=== PATIENT | female | born 1970 | race Caucasian/White ===

== ENCOUNTER 2021-08-10 00:34 | Inpatient (IN) | payer OTHER ==
[2021-08-10] MEDS ORDERED: SODIUM CHLORIDE 0.9% 1,000 ML IV STA (01:51)
--- NOTE | 2021-08-10 01:53 | ED ---
Weakness HPI - General Chief complaint: Recheck/Abnormal Lab/Rx Stated complaint: Dehydration Time Seen by Provider: 08/10/21 01:51 Source: patient, RN notes reviewed, old records reviewed Mode of arrival: ambulatory Limitations: no limitations - History of Present Illness Initial comments: 51-year-old female to the for evaluation. Patient presents today for evaluation of weakness [place], she is today for alcohol withdrawal with alcohol alcoholism. Patient resents today for weakness debility decreased appetite weight loss and vomiting dehydration generalized pain and weakness. Patient states she does not feel well. MD Complaint: generalized weakness -: hour(s) Location: generalized Severity: moderate Severity scale (1-10): 5 Consistency: constant Improves with: none Worsens with: none Context: history of similar Associated Symptoms: nausea/vomiting - Related Data Allergies Allergy/AdvReac Type Severity Reaction Status Date / Time nickel Allergy Rash/Hives Verified 08/10/21 00:36 Review of Systems ROS Statement: Those systems with pertinent positive or pertinent negative responses have been documented in the HPI. ROS Other: All systems not noted in ROS Statement are negative. Past Medical History Past Medical History: Asthma, COPD, Liver Disease History of Any Multi-Drug Resistant Organisms: None Reported Past Surgical History: Hernia Repair Past Psychological History: No Psychological Hx Reported Smoking Status: Current every day smoker Past Alcohol Use History: Abuse, Daily Past Drug Use History: None Reported General Exam Limitations: no limitations General appearance: alert, in no apparent distress, anxious Head exam: Present: atraumatic, normocephalic, normal inspection Eye exam: Present: normal appearance, PERRL, EOMI. Absent: scleral icterus, conjunctival injection, periorbital swelling ENT exam: Present: normal exam, mucous membranes moist Neck exam: Present: normal inspection. Absent: tenderness, meningismus, lymphadenopathy Respiratory exam: Present: normal lung sounds bilaterally. Absent: respiratory distress, wheezes, rales, rhonchi, stridor Cardiovascular Exam: Present: normal rhythm, tachycardia, normal heart sounds. Absent: systolic murmur, diastolic murmur, rubs, gallop, clicks GI/Abdominal exam: Present: soft, normal bowel sounds. Absent: distended, tenderness, guarding, rebound, rigid Extremities exam: Present: normal inspection, full ROM, normal capillary refill. Absent: tenderness, pedal edema, joint swelling, calf tenderness Back exam: Present: normal inspection Neurological exam: Present: alert, oriented X3, CN II-XII intact Psychiatric exam: Present: normal affect, normal mood Skin exam: Present: warm, dry, intact, normal color. Absent: rash Course Vital Signs 08/10/21 08/10/21 08/10/21 00:37 02:59 03:00 Temperature 97.6 F Pulse Rate 114 H 75 68 Respiratory 16 18 18 Rate Blood Pressure 106/62 111/75 123/67 O2 Sat by Pulse 98 99 99 Oximetry 08/10/21 08/10/21 04:00 05:21 Temperature Pulse Rate 109 H 71 Respiratory 18 18 Rate Blood Pressure 122/64 121/55 O2 Sat by Pulse 99 97 Oximetry - Reevaluation(s) Reevaluation #1: 08/10/21 05:29 Medical record is reviewed Reevaluation #2: 08/10/21 05:29 Patient has no change in symptoms here in the ER Reevaluation #3: 08/10/21 05:29 Patient informed of results and questions answered - Consultations Consultation #1: Spoke with sound physicians agreeable to admit this patient EKG Findings - EKG Comments: EKG Findings:: EKG sinus rhythm 78 [place] 132 QRS 82 QTC 386 Medical Decision Making - Medical Decision Making 51 female to the emergency department for evaluation of weakness and not feeling well mild pancreatitis with significant electrolyte derangement. Patient be admitted for electronically replacement hydration monitoring. - Lab Data Result diagrams: 08/10/21 02:59 08/10/21 02:59 Lab Results 08/10/21 08/10/21 08/10/21 Range/Units 02:47 02:59 02:59 WBC 3.7 L (3.8-10.6) k/uL RBC 3.19 L (3.80-5.40) m/uL Hgb 11.6 (11.4-16.0) gm/dL Hct 33.5 L (34.0-46.0) % MCV 105.2 H (80.0-100.0) fL MCH 36.3 H (25.0-35.0) pg MCHC 34.5 (31.0-37.0) g/dL RDW 16.8 H (11.5-15.5) % Plt Count 72 L (150-450) k/uL MPV 8.9 Neutrophils % 67 % Lymphocytes % 24 % Monocytes % 6 % Eosinophils % 1 % Basophils % 0 % Neutrophils # 2.5 (1.3-7.7) k/uL Lymphocytes # 0.9 L (1.0-4.8) k/uL Monocytes # 0.2 (0-1.0) k/uL Eosinophils # 0.0 (0-0.7) k/uL Basophils # 0.0 (0-0.2) k/uL Anisocytosis Slight Macrocytosis Moderate PT (9.0-12.0) sec INR (<1.2) APTT (22.0-30.0) sec Sodium 133 L (137-145) mmol/L Potassium 3.4 L (3.5-5.1) mmol/L Chloride 97 L (98-107) mmol/L Carbon Dioxide 25 (22-30) mmol/L Anion Gap 11 mmol/L BUN 11 (7-17) mg/dL Creatinine 0.68 (0.52-1.04) mg/dL Est GFR (CKD-EPI)AfAm >90 (>60 ml/min/1.73 sqM) Est GFR (CKD-EPI)NonAf >90 (>60 ml/min/1.73 sqM) Glucose 124 H (74-99) mg/dL Plasma Lactic Acid Mert (0.7-2.0) mmol/L Calcium 10.7 H (8.4-10.2) mg/dL Phosphorus 2.2 L (2.5-4.5) mg/dL Magnesium 1.3 L (1.6-2.3) mg/dL Total Bilirubin 1.1 (0.2-1.3) mg/dL AST 143 H (14-36) U/L ALT 27 (4-34) U/L Alkaline Phosphatase 142 H (38-126) U/L Troponin I (0.000-0.034) ng/mL NT-Pro-B Natriuret Pep pg/mL Total Protein 8.2 (6.3-8.2) g/dL Albumin 4.9 (3.5-5.0) g/dL Lipase 519 H (23-300) U/L Urine Color Yellow Urine Appearance Cloudy H (Clear) Urine pH 6.5 (5.0-8.0) Ur Specific [place] 1.015 (1.001-1.035) Urine Protein 1+ H (Negative) Urine Glucose (UA) Negative (Negative) Urine Ketones 1+ H (Negative) Urine Blood Negative (Negative) Urine Nitrite Negative (Negative) Urine Bilirubin 1+ H (Negative) Urine Urobilinogen 3.0 (<2.0) mg/dL Ur Leukocyte Esterase Moderate H (Negative) Urine RBC <1 (0-5) /hpf Urine WBC 9 H (0-5) /hpf Ur Squamous Epith Cells 4 (0-4) /hpf Amorphous Sediment Rare H (None) /hpf Hyaline Casts 59 H (0-2) /lpf Urine Mucus Many H (None) /hpf Salicylates <1.0 mg/dL Acetaminophen <10.0 ug/mL Serum Alcohol <10 mg/dL 08/10/21 08/10/21 08/10/21 Range/Units 02:59 02:59 02:59 WBC (3.8-10.6) k/uL RBC (3.80-5.40) m/uL Hgb (11.4-16.0) gm/dL Hct (34.0-46.0) % MCV (80.0-100.0) fL MCH (25.0-35.0) pg MCHC (31.0-37.0) g/dL RDW (11.5-15.5) % Plt Count (150-450) k/uL MPV Neutrophils % % Lymphocytes % % Monocytes % % Eosinophils % % Basophils % % Neutrophils # (1.3-7.7) k/uL Lymphocytes # (1.0-4.8) k/uL Monocytes # (0-1.0) k/uL Eosinophils # (0-0.7) k/uL Basophils # (0-0.2) k/uL Anisocytosis Macrocytosis PT 10.5 (9.0-12.0) sec INR 1.0 (<1.2) APTT 21.0 L (22.0-30.0) sec Sodium (137-145) mmol/L Potassium (3.5-5.1) mmol/L Chloride (98-107) mmol/L Carbon Dioxide (22-30) mmol/L Anion Gap mmol/L BUN (7-17) mg/dL Creatinine (0.52-1.04) mg/dL Est GFR (CKD-EPI)AfAm (>60 ml/min/1.73 sqM) Est GFR (CKD-EPI)NonAf (>60 ml/min/1.73 sqM) Glucose (74-99) mg/dL Plasma Lactic Acid Mert 0.9 (0.7-2.0) mmol/L Calcium (8.4-10.2) mg/dL Phosphorus (2.5-4.5) mg/dL Magnesium (1.6-2.3) mg/dL Total Bilirubin (0.2-1.3) mg/dL AST (14-36) U/L ALT (4-34) U/L Alkaline Phosphatase (38-126) U/L Troponin I <0.012 (0.000-0.034) ng/mL NT-Pro-B Natriuret Pep pg/mL Total Protein (6.3-8.2) g/dL Albumin (3.5-5.0) g/dL Lipase (23-300) U/L Urine Color Urine Appearance (Clear) Urine pH (5.0-8.0) Ur Specific [place] (1.001-1.035) Urine Protein (Negative) Urine Glucose (UA) (Negative) Urine Ketones (Negative) Urine Blood (Negative) Urine Nitrite (Negative) Urine Bilirubin (Negative) Urine Urobilinogen (<2.0) mg/dL Ur Leukocyte Esterase (Negative) Urine RBC (0-5) /hpf Urine WBC (0-5) /hpf Ur Squamous Epith Cells (0-4) /hpf Amorphous Sediment (None) /hpf Hyaline Casts (0-2) /lpf Urine Mucus (None) /hpf Salicylates mg/dL Acetaminophen ug/mL Serum Alcohol mg/dL 08/10/21 Range/Units 02:59 WBC (3.8-10.6) k/uL RBC (3.80-5.40) m/uL Hgb (11.4-16.0) gm/dL Hct (34.0-46.0) % MCV (80.0-100.0) fL MCH (25.0-35.0) pg MCHC (31.0-37.0) g/dL RDW (11.5-15.5) % Plt Count (150-450) k/uL MPV Neutrophils % % Lymphocytes % % Monocytes % % Eosinophils % % Basophils % % Neutrophils # (1.3-7.7) k/uL Lymphocytes # (1.0-4.8) k/uL Monocytes # (0-1.0) k/uL Eosinophils # (0-0.7) k/uL Basophils # (0-0.2) k/uL Anisocytosis Macrocytosis PT (9.0-12.0) sec INR (<1.2) APTT (22.0-30.0) sec Sodium (137-145) mmol/L Potassium (3.5-5.1) mmol/L Chloride (98-107) mmol/L Carbon Dioxide (22-30) mmol/L Anion Gap mmol/L BUN (7-17) mg/dL Creatinine (0.52-1.04) mg/dL Est GFR (CKD-EPI)AfAm (>60 ml/min/1.73 sqM) Est GFR (CKD-EPI)NonAf (>60 ml/min/1.73 sqM) Glucose (74-99) mg/dL Plasma Lactic Acid Mert (0.7-2.0) mmol/L Calcium (8.4-10.2) mg/dL Phosphorus (2.5-4.5) mg/dL Magnesium (1.6-2.3) mg/dL Total Bilirubin (0.2-1.3) mg/dL AST (14-36) U/L ALT (4-34) U/L Alkaline Phosphatase (38-126) U/L Troponin I (0.000-0.034) ng/mL NT-Pro-B Natriuret Pep 114 pg/mL Total Protein (6.3-8.2) g/dL Albumin (3.5-5.0) g/dL Lipase (23-300) U/L Urine Color Urine Appearance (Clear) Urine pH (5.0-8.0) Ur Specific [place] (1.001-1.035) Urine Protein (Negative) Urine Glucose (UA) (Negative) Urine Ketones (Negative) Urine Blood (Negative) Urine Nitrite (Negative) Urine Bilirubin (Negative) Urine Urobilinogen (<2.0) mg/dL Ur Leukocyte Esterase (Negative) Urine RBC (0-5) /hpf Urine WBC (0-5) /hpf Ur Squamous Epith Cells (0-4) /hpf Amorphous Sediment (None) /hpf Hyaline Casts (0-2) /lpf Urine Mucus (None) /hpf Salicylates mg/dL Acetaminophen ug/mL Serum Alcohol mg/dL Disposition Clinical Impression: Weakness, Hypokalemia, Hypomagnesemia, Pancreatitis Disposition: ADMITTED IP TO THIS HOSP Condition: Good Is patient prescribed a controlled substance at d/c from ED?: No Referrals: Nonstaff,Physician [REFERRING] - 1-2 days
[2021-08-10 03:19] LABS: ALT 27 U/L (4-34); AST 143 U/L (14-36); Acetaminophen <10.0 ug/mL; African American GFR (CKD) >90 (>60 ml/min/1.73 sqM); Albumin 4.9 g/dL (3.5-5.0); Alcohol <10 mg/dL; Alkaline Phosphatase 142 U/L (38-126); Anion Gap 11 mmol/L; Blood Urea Nitrogen 11 mg/dL (7-17); Calcium 10.7 mg/dL (8.4-10.2); Carbon Dioxide 25 mmol/L (22-30); Chloride 97 mmol/L (98-107); Glucose 124 mg/dL (74-99); Lipase 519 U/L (23-300); Magnesium 1.3 mg/dL (1.6-2.3); Non-African American GFR(CKD) >90 (>60 ml/min/1.73 sqM); Phosphorus 2.2 mg/dL (2.5-4.5); Potassium 3.4 mmol/L (3.5-5.1); Salicylate <1.0 mg/dL; Sodium 133 mmol/L (137-145); Total Bilirubin 1.1 mg/dL (0.2-1.3); Total Protein 8.2 g/dL (6.3-8.2)
[2021-08-10 03:20] LABS: Amorphous Sediment,Urine Rare /hpf; Appearance,Urine Cloudy (Clear); Bilirubin,Urine 1+ (Negative); Blood,Urine Negative (Negative); Color,Urine Yellow; Glucose,Urine (UA) Negative (Negative); Hyaline Casts,Urine 59 /lpf (0-2); Ketones,Urine 1+ (Negative); Leukocyte Esterase,Urine Moderate (Negative); Mucus,Urine Many /hpf; Nitrite,Urine Negative (Negative); PH, Urine 6.5 (5.0-8.0); Protein,Urine 1+ (Negative); RBC,Urine <1 /hpf (0-5); Specific Gravity,Urine 1.015 (1.001-1.035); Squamous Epithelial Cell,Urine 4 /hpf (0-4); WBC,Urine 9 /hpf (0-5)
[2021-08-10 03:22] LABS: Anisocytosis Slight; Basophils % (A) 0 %; Eosinophils % (A) 1 %; HCT 33.5 % (34.0-46.0); HGB 11.6 gm/dL (11.4-16.0); Lymphocytes # (A) 0.9 k/uL (1.0-4.8); Lymphocytes % (A) 24 %; MCH 36.3 pg (25.0-35.0); MCHC 34.5 g/dL (31.0-37.0); MCV 105.2 fL (80.0-100.0); Macrocytosis Moderate; Mean Platelet Volume 8.9; Monocytes # (A) 0.2 k/uL (0-1.0); Monocytes % (A) 6 %; Neutrophils # (A) 2.5 k/uL (1.3-7.7); Neutrophils % (A) 67 %; Platelet Count 72 k/uL (150-450); RBC 3.19 m/uL (3.80-5.40); RDW 16.8 % (11.5-15.5); WBC 3.7 k/uL (3.8-10.6)
[2021-08-10 03:28] LABS: Prothrombin Time 10.5 sec (9.0-12.0)
[2021-08-10] MEDS ORDERED: POTASSIUM BICARBONATE/CIT AC 20 MEQ TABLET.EFF PO ONE (04:18)
[2021-08-10] MEDS ORDERED: MAGNESIUM OXIDE 400 MG TAB PO STA (04:18)
[2021-08-10] MEDS ORDERED: cefTRIAXone IN SWFI 1,000 MG/10 ML SYRINGE IVP STA (04:19)
[2021-08-10] MEDS ORDERED: SODIUM CHLORIDE 0.9% 500 ML 500 ML IV STA (04:29)
[2021-08-10] MEDS: MAGNESIUM SULFATE-D5W PMX 1 GM in DEXTROSE/WATER 1 100ML.BAG IVPB SCH ×2 (04:48→05:50)
[2021-08-10] MEDS: SODIUM CHLORIDE 0.9% 1,000 ML IV SCH ×4 (04:49→22:37)
[2021-08-10] MEDS ORDERED: NALOXONE 0.4 MG/ML 1 ML VIAL IV PRN ×2 (07:48→13:14)
[2021-08-10] MEDS ORDERED: ONDANSETRON 4 MG/2 ML VIAL IVP PRN (07:48)
[2021-08-10] MEDS: MAGNESIUM OXIDE 400 MG TAB PO SCH ×2 (11:17→20:46)
[2021-08-10] MEDS ORDERED: MORPHINE SULFATE 2 MG/ML SYRINGE IVP PRN (13:14)
[2021-08-10] MEDS ORDERED: DOCUSATE 100 MG CAP PO PRN (13:14)
[2021-08-10] MEDS ORDERED: LORazepam 2 MG/ML INJ IV PRN ×3 (13:22)
[2021-08-10] MEDS ORDERED: THIAMINE 100 MG/ML 2 ML VIAL IM STA (13:22)
--- NOTE | 2021-08-10 14:24 | P.HPIM ---
History of Present Illness Chief Complaint: Weakness with increased shakes 51-year-old female with past medical history significant for chronic alcohol dependence since she was 19 years old. Patient presents today for evaluation of increased weakness weakness which shakes from [facility]. Last alcohol drink was 3 days ago. Patient stated that she normally drink pint of vodka in a daily basis. She is complaining of nausea but no vomiting. She is also complaining of increased shakes with tremors. The patient stated that she was so weak she almost fell today. She denies any chest pain or shortness of breath. Patient denied any abdominal pain or changes in her bowel movement. Lipase was elevated at the emergency room. Review of Systems All 14 review of systems evaluated and all negative except for above. Past Medical History Past Medical History: Asthma, COPD, Hypertension, Liver Disease Additional Past Medical History / Comment(s): Fatty liver, palpitations. History of Any Multi-Drug Resistant Organisms: None Reported Past Surgical History: Hernia Repair Additional Past Surgical History / Comment(s): L inguinal hernia x2, colonoscopy Past Anesthesia/Blood Transfusion Reactions: No Reported Reaction Smoking Status: Current every day smoker - Past Family History Mother Family Medical History: CVA/TIA Father Family Medical History: Diabetes Mellitus, Myocardial Infarction (OR) Additional Family Medical History / Comment(s): Pt cannot recall father's age when he had his OR. Medications and Allergies Home Medications Medication Instructions Recorded Confirmed Type Albuterol Sulfate [Ventolin HFA] 1 - 2 puff INHALATION RT-Q6H PRN 08/10/21 08/10/21 History Sertraline [Zoloft] 50 mg PO DAILY 08/10/21 08/10/21 History Stomach Medication (Unknown) 1 tab PO DAILY PRN 08/10/21 08/10/21 History Trazodone (Unknown Dose) 1 tab PO HS PRN 08/10/21 08/10/21 History atenoloL 25 mg PO DAILY PRN 08/10/21 08/10/21 History Allergies Allergy/AdvReac Type Severity Reaction Status Date / Time nickel Allergy Rash/Hives Verified 08/10/21 08:01 Physical Exam Vitals: Vital Signs Temp Pulse Resp BP Pulse Ox 08/10/21 05:21 71 18 121/55 97 08/10/21 04:00 109 H 18 122/64 99 08/10/21 03:00 68 18 123/67 99 08/10/21 02:59 75 18 111/75 99 08/10/21 00:37 97.6 F 114 H 16 106/62 98 Intake and Output 08/09/21 08/10/21 08/10/21 22:59 06:59 14:59 Other: Weight 42.638 kg 42.638 kg General: non toxic, patient look malnourished, weak and frail and appears older than his stated age Derm: warm, dry Head: atraumatic, normocephalic, symmetric Eyes: EOMI, no lid lag, anicteric sclera Mouth: no lip lesion, mucus membranes moist Cardiovascular: S1S2 reg, no murmur, positive posterior tibial pulse bilateral, Lungs: CTA bilateral, no rhonchi, no rales , no accessory muscle use Abdominal: soft, nontender to palpation, no guarding, no appreciable organomegaly Ext: no gross muscle atrophy, no edema, no contractures Neuro: CN II-XI grossly intact, no focal neuro deficits Psych: Alert, oriented, appropriate affect Results CBC & Chem 7: 08/10/21 02:59 08/10/21 02:59 Labs: Abnormal Lab Results - Last 24 Hours (Table) 08/10/21 08/10/21 08/10/21 Range/Units 02:47 02:59 02:59 WBC 3.7 L (3.8-10.6) k/uL RBC 3.19 L (3.80-5.40) m/uL Hct 33.5 L (34.0-46.0) % MCV 105.2 H (80.0-100.0) fL MCH 36.3 H (25.0-35.0) pg RDW 16.8 H (11.5-15.5) % Plt Count 72 L (150-450) k/uL Lymphocytes # 0.9 L (1.0-4.8) k/uL APTT (22.0-30.0) sec Sodium 133 L (137-145) mmol/L Potassium 3.4 L (3.5-5.1) mmol/L Chloride 97 L (98-107) mmol/L Glucose 124 H (74-99) mg/dL Calcium 10.7 H (8.4-10.2) mg/dL Phosphorus 2.2 L (2.5-4.5) mg/dL Magnesium 1.3 L (1.6-2.3) mg/dL AST 143 H (14-36) U/L Alkaline Phosphatase 142 H (38-126) U/L Lipase 519 H (23-300) U/L Urine Appearance Cloudy H (Clear) Urine Protein 1+ H (Negative) Urine Ketones 1+ H (Negative) Urine Bilirubin 1+ H (Negative) Ur Leukocyte Esterase Moderate H (Negative) Urine WBC 9 H (0-5) /hpf Amorphous Sediment Rare H (None) /hpf Hyaline Casts 59 H (0-2) /lpf Urine Mucus Many H (None) /hpf 08/10/21 Range/Units 02:59 WBC (3.8-10.6) k/uL RBC (3.80-5.40) m/uL Hct (34.0-46.0) % MCV (80.0-100.0) fL MCH (25.0-35.0) pg RDW (11.5-15.5) % Plt Count (150-450) k/uL Lymphocytes # (1.0-4.8) k/uL APTT 21.0 L (22.0-30.0) sec Sodium (137-145) mmol/L Potassium (3.5-5.1) mmol/L Chloride (98-107) mmol/L Glucose (74-99) mg/dL Calcium (8.4-10.2) mg/dL Phosphorus (2.5-4.5) mg/dL Magnesium (1.6-2.3) mg/dL AST (14-36) U/L Alkaline Phosphatase (38-126) U/L Lipase (23-300) U/L Urine Appearance (Clear) Urine Protein (Negative) Urine Ketones (Negative) Urine Bilirubin (Negative) Ur Leukocyte Esterase (Negative) Urine WBC (0-5) /hpf Amorphous Sediment (None) /hpf Hyaline Casts (0-2) /lpf Urine Mucus (None) /hpf Thrombosis Risk Factor Assmnt - Choose All That Apply Any of the Below Risk Factors Present?: Yes Each Factor Represents 1 point: Abnormal pulmonary function (COPD), Age 41-60 years Other Risk Factors: No Other congenital or acquired thrombophilia - If yes, enter type in comment: No Thrombosis Risk Factor Assessment Total Risk Factor Score: 2 Thrombosis Risk Factor Assessment Level: Low Risk Assessment and Plan Assessment: Assessment and plan: #Alcohol withdrawal -Patient under CIWA protocol with Ativan -Folic acid thiamine and multivitamins -Continue to monitor for worsening symptoms #Alcoholic pancreatitis -CT abdomen has been ordered -Clear liquid diet -IV fluid -3 and lipase daily --Status elevated #Leukopenia and thrombocytopenia -Secondary to alcoholism #Hyponatremia -Secondary to dehydration -IV fluids #Severe protein Malnutrition -Secondary to alcohol dependence -Nutrition services consulted #Ongoing tobacco abuse -Patient was counseled regarding smoking cessation -Nicotine patch ordered #GI and DVT prophylaxis with PPI and Lovenox
--- NOTE | 2021-08-10 15:17 | CT ---
EXAMINATION TYPE: CT abdomen pelvis w con DATE OF EXAM: 08/10/2021 COMPARISON: NONE HISTORY: 51-year-old female pain, pancreatitis, Elevated lipase TECHNIQUE: Contiguous axial scanning of the abdomen and pelvis following administration of 100 ml Iso erasto 300 IV contrast. Delayed images through the kidneys and coronal/sagittal reconstructions perform ed. CT DLP: 481 mGycm Automated exposure control for dose reduction was used. FINDINGS: Heart normal size without pericardial effusion. Some strandy atelectasis inferior lingula. No pleural effusion. Liver enlarged measuring 18.6 cm with low-attenuation. Correlate for hepatic steatosis. Portal venous system is patent. No biliary ductal dilatation. Gallbladder, adrenal glands, kidneys, bleeding, and pancreas within normal limits. Mild atherosclerotic calcifications infrarenal abdominal aorta and proximal right common iliac artery . Prominent fluid-filled small bowel loops throughout without abnormal dilatation or transition point. Normal appendix. Mild overall stool burden. Mid to distal sigmoid diverticulosis. No pericolonic inflammatory change. Bladder nondistended. Uterus is anteverted. There appears to be some mild free fluid. Post between th e dome of the bladder and the anterior uterus. No pelvic lymphadenopathy seen. Ovaries not clearly de lineated from adjacent bowel loops. Numerous pelvic lymph nodes. Bones: Bilateral L5 pars defects with grade 1 anterolisthesis L5-S1. Mild degenerative disc disease t horacolumbar junction. IMPRESSION: 1. NO SPECIFIC CT FINDINGS OF ACUTE PANCREATITIS AT THIS TIME. FURTHER CLINICAL CORRELATION RECOMMEND ED. NOTE THAT MILD ACUTE PANCREATITIS MAY NOT HAVE ANY CT FINDINGS. 2. PROMINENT FLUID-FILLED SMALL BOWEL LOOPS THROUGHOUT THE ABDOMEN. CORRELATE FOR GENERALIZED ILEUS O R ENTERITIS. 3. LEFT-SIDED CLONIC DIVERTICULOSIS WITHOUT ACUTE DIVERTICULITIS. 4. MILD PELVIC FREE FLUID LIKELY PHYSIOLOGIC. 5. THERE MAY BE SOME UNDERLYING HEPATIC STEATOSIS. 6. BILATERAL L5 PARS DEFECTS WITH GRADE 1 ANTEROLISTHESIS AT L5-S1.
[2021-08-10] MEDS: MULTIVITAMINS, THERA 1 EACH TAB PO SCH (15:19)
[2021-08-10] MEDS: THIAMINE 100 MG TAB PO SCH (15:19)
[2021-08-10] MEDS: FOLIC ACID 1 MG TAB PO SCH (15:24)
[2021-08-10] MEDS: PANTOPRAZOLE SODIUM 40 MG GRANULE PKT PO SCH (16:27)
[2021-08-10] MEDS ORDERED: NICOTINE 14MG/24HR PATCH TRANSDERM STA (20:53)
[2021-08-11] MEDS: ENOXAPARIN 40 MG/0.4 ML SYRINGE SQ SCH (08:15)
[2021-08-11] MEDS: THIAMINE 100 MG TAB PO SCH ×2 (08:15→17:34)
[2021-08-11] MEDS: MULTIVITAMINS, THERA 1 EACH TAB PO SCH (08:15)
[2021-08-11] MEDS: PANTOPRAZOLE SODIUM 40 MG GRANULE PKT PO SCH (08:15)
[2021-08-11] MEDS: MAGNESIUM OXIDE 400 MG TAB PO SCH ×2 (08:15→19:31)
[2021-08-11] MEDS: FOLIC ACID 1 MG TAB PO SCH (08:15)
[2021-08-11] MEDS: NICOTINE 14MG/24HR PATCH TRANSDERM SCH (08:15)
[2021-08-11 09:13] LABS: Magnesium 1.6 mg/dL (1.5-2.4)
[2021-08-11 09:14] LABS: African American GFR (CKD) 141.7 (60.0-200.0); Albumin 3.7 g/dL (3.8-4.9); Albumin/Globulin Ratio 2.18 (1.60-3.17); Anion Gap 12.4 mmol/L (10.00-18.00); BUN/Creat Ratio 9.5 Ratio (12.00-20.00); Blood Urea Nitrogen 3.8 mg/dL (9.0-27.0); Calcium 8.5 mg/dL (8.7-10.3); Carbon Dioxide 24.6 mmol/L (20.0-27.5); Globulin 1.7 g/dL (1.6-3.3); Non-African American GFR(CKD) 122.3 (60.0-200.0); Potassium 3.4 mmol/L (3.5-5.5); Total Bilirubin 0.4 mg/dL (0.30-1.20); Total Protein 5.4 g/dL (6.2-8.2)
[2021-08-11 11:38] LABS: Basophils # (A) 0.01 X 10*3/uL (0.00-0.10); Basophils % (A) 0.4 %; Eosinophils # (A) 0.04 X 10*3/uL (0.04-0.35); Eosinophils % (A) 1.6 %; HCT 27.4 % (37.2-46.3); HGB 9.2 g/dL (12.0-15.0); Immature Grans, Automated 0.4 %; Immature Platelet Fraction 8.9 % (1.1-6.1); Lymphocytes # (A) 1.05 X 10*3/uL (0.90-5.00); Lymphocytes % (A) 42.7 %; MCH 35.4 pg (27.0-32.0); MCHC 33.6 g/dL (32.0-37.0); MCV 105.4 fL (80.0-97.0); Macrocytosis (M) 2+; Mean Platelet Volume 10.9 fL (9.5-12.2); Monocytes # (A) 0.23 X 10*3/uL (0.20-1.00); Monocytes % (A) 9.3 %; NRBC Per 100 WBC 0.8 /100 WBCS (0.0-0.0); Neutrophils # (A) 1.12 X 10*3/uL (1.80-7.70); Neutrophils % (A) 45.6 %; Platelet Count 59 X 10*3/uL (140-440); RDW 15.7 % (11.5-14.5); WBC 2.46 X 10*3/uL (4.50-10.00)
[2021-08-11] MEDS ORDERED: POTASSIUM CHLORIDE ER 10 MEQ TAB.ER.PRT PO STA (13:35)
--- NOTE | 2021-08-11 13:40 | P.PN ---
Subjective Progress Note Date: 08/11/21 Principal diagnosis: etoh abuse Feeling well. Still nauseated. No fever. No pain or sob. Objective - Vital Signs Vital signs: Vital Signs Temp 98.2 F 08/11/21 08:11 Pulse 87 08/11/21 08:11 Resp 18 08/11/21 08:11 BP 96/53 08/11/21 08:11 Pulse Ox 96 08/11/21 08:11 Intake & Output 08/10/21 08/11/21 08/11/21 18:59 06:59 18:59 Weight 42.638 kg Other: Voiding Method Toilet Toilet - Exam Constitutional: No acute distress, conversant, pleasant Eyes:Anicteric sclerae, moist conjunctiva, no lid-lag, PERRLA, ENMT: Oropharynx clear, no erythema, exudates Neck: Supple, FROM, no masses, or JVD, No carotid bruits, No thyromegaly Lungs: Clear to auscultation, Clear to percussion, Normal respiratory effort, no accessory muscle use Cardiovascular: Heart regular in rate and rhythm, No murmurs, gallops, or rubs, No peripheral edema Abdominal: Soft, Nontender, no guarding, rebound or rigidity, Normoactive bowel sounds, No hepatomegaly, No splenomegaly, No palpable mass Skin: Normal temperature, tone, texture, turgor, no induration, No subcutaneous nodules, No rash, lesions, No ulcers Extremities: No digital cyanosis, No clubbing, Pedal pulses intact and symmetrical, Radial pulses intact and symmetrical, No calf tenderness Psychiatric: Alert and oriented to person, place and time, appropriate affect, intact judgement Neuro: Muscles Strength 5/5 in all 4 extremities, Sensation to light touch grossly present throughout, Cranial nerves II-XII grossly intact, no focal sensory deficits - Labs CBC & Chem 7: 08/11/21 04:32 08/11/21 04:32 Labs: Abnormal Lab Results - Last 24 Hours (Table) 08/11/21 08/11/21 Range/Units 04:32 04:32 WBC 2.46 L (4.50-10.00) X 10*3/uL RBC 2.60 L (4.10-5.20) X 10*6/uL Hgb 9.2 L (12.0-15.0) g/dL Hct 27.4 L (37.2-46.3) % MCV 105.4 H (80.0-97.0) fL MCH 35.4 H (27.0-32.0) pg RDW 15.7 H (11.5-14.5) % Plt Count 59 L (140-440) X 10*3/uL Plt Count Comment DECREASED A Absolute Nucleated RBC 0.02 H (0.00-0.00) X 10*3/uL Neutrophils # 1.12 L (1.80-7.70) X 10*3/uL NRBC/100 WBC Diff 0.8 H (0.0-0.0) /100 WBCS Immature Plt Fraction 8.9 H (1.1-6.1) % Potassium 3.4 L (3.5-5.5) mmol/L BUN 3.8 L (9.0-27.0) mg/dL Creatinine 0.4 L (0.6-1.5) mg/dL BUN/Creatinine Ratio 9.50 L (12.00-20.00) Ratio Glucose 120 H (70-110) mg/dL Calcium 8.5 L (8.7-10.3) mg/dL Phosphorus 0.9 L* (2.4-5.1) mg/dL AST 110 H (13-35) U/L Total Protein 5.4 L (6.2-8.2) g/dL Albumin 3.7 L (3.8-4.9) g/dL Lipase 140 H (14-63) U/L Assessment and Plan Plan: #Alcohol withdrawal -Patient under CIWA protocol with Ativan -Folic acid thiamine and multivitamins -Continue to monitor for worsening symptoms #Alcoholic pancreatitis -Clear liquid diet -IV fluid -lipase improved. # Ileus -Shown on CT, IV fluids -Advance diet as tolerated. #Hypokalemia, hypomagnesemia, hypophosphatemia -We'll replace and follow in a.m. #Leukopenia and thrombocytopenia -Secondary to alcoholism #Hyponatremia -Secondary to dehydration -IV fluids #Severe protein Malnutrition -Secondary to alcohol dependence -Nutrition services consulted #Ongoing tobacco abuse -Patient was counseled regarding smoking cessation -Nicotine patch ordered #GI and DVT prophylaxis with PPI and Lovenox
[2021-08-11] MEDS: MAGNESIUM SULFATE-D5W PMX 1 GM in DEXTROSE/WATER 1 100ML.BAG IVPB SCH ×2 (14:24→16:08)
[2021-08-11] MEDS: SODIUM CHLORIDE 0.9% 1,000 ML IV SCH ×2 (14:25→19:32)
[2021-08-11] MEDS: POTAS-SOD-PHOS 278-164-250 MG 1 EACH PACKET PO SCH ×2 (16:09→21:42)
[2021-08-11 18:25] LABS: Phosphorus 0.9 mg/dL (2.4-5.1)
[2021-08-11 21:45] VITALS: TEMP 98
[2021-08-12] MEDS: SODIUM CHLORIDE 0.9% 1,000 ML IV SCH ×2 (01:42→08:29)
[2021-08-12 04:07] VITALS: RESP 16
[2021-08-12 04:59] VITALS: BP 131/75; PULSE 86
[2021-08-12] MEDS: ENOXAPARIN 40 MG/0.4 ML SYRINGE SQ SCH (08:27)
[2021-08-12] MEDS: POTAS-SOD-PHOS 278-164-250 MG 1 EACH PACKET PO SCH (08:28)
[2021-08-12] MEDS: PANTOPRAZOLE SODIUM 40 MG GRANULE PKT PO SCH (08:28)
[2021-08-12] MEDS: NICOTINE 14MG/24HR PATCH TRANSDERM SCH (08:28)
[2021-08-12] MEDS: FOLIC ACID 1 MG TAB PO SCH (08:29)
[2021-08-12] MEDS: MULTIVITAMINS, THERA 1 EACH TAB PO SCH (08:29)
[2021-08-12] MEDS: THIAMINE 100 MG TAB PO SCH (08:29)
[2021-08-12] MEDS: MAGNESIUM OXIDE 400 MG TAB PO SCH (08:29)
[2021-08-12 09:46] LABS: African American GFR (CKD) 145.4 (60.0-200.0); Albumin 3.5 g/dL (3.8-4.9); Albumin/Globulin Ratio 2.32 (1.60-3.17); Anion Gap 7.8 mmol/L (10.00-18.00); BUN/Creat Ratio 5.54 Ratio (12.00-20.00); Blood Urea Nitrogen 2.1 mg/dL (9.0-27.0); Calcium 7.9 mg/dL (8.7-10.3); Globulin 1.5 g/dL (1.6-3.3); Magnesium 1.7 mg/dL (1.5-2.4); Non-African American GFR(CKD) 125.5 (60.0-200.0); Potassium 3.3 mmol/L (3.5-5.5); Total Bilirubin 0.2 mg/dL (0.30-1.20)
--- NOTE | 2021-08-12 11:31 | P.DS ---
Providers Date of admission: 08/10/21 07:48 Expected date of discharge: 08/12/21 Attending physician: Yan Rizvi MD Primary care physician: Tomas Guadarrama [facility] Course: 51-year-old female with past medical history significant for chronic alcohol dependence since she was 19 years old. Patient presented from [facility] for evaluation of increased weakness. Last alcohol drink was 3 days prior to admission. Patient stated that she normally drink pint of vodka in a daily basis. She had nausea but no vomiting, also had increased shakes with tremors. The patient stated that she was so weak she almost fell today. No chest pain or shortness of breath. Patient denied any abdominal pain or changes in her bowel movement. Lipase was elevated at the emergency room. Patient was admitted, diagnosed with acute pancreatitis. Computed tomography scan of the abdomen and pelvis did not show pancreatitis however. It showed fluid-filled small bowel loops consistent with ileus. Patient was started on treatment with IV fluids. She did not have significant abdominal pain therefore she does not require pain medication. Diet was advanced gradually from liquid to regular. She tolerated it well. Her potassium, magnesium and phosphorous were all low, she was treated with replacements. She is currently doing well, she will be discharged back to [place] in stable condition. Patient Condition at Discharge: Good Plan - Discharge Summary Discharge Rx Participant: No New Discharge Prescriptions: New Folic Acid 1 mg PO DAILY 90 Days #90 tab Potassium Chloride ER [K-Dur 10] 10 meq PO DAILY 30 Days #30 tab Magnesium Oxide [Mag-Ox] 400 mg PO BID 30 Days #60 tab Multivitamins, Thera [Multivitamin (formulary)] 1 each PO DAILY 90 Days #90 tab Thiamine [Vitamin B-1] 100 mg PO BID-W/MEALS 90 Days #90 tab Continue atenoloL 25 mg PO DAILY PRN PRN Reason: Blood Pressure - High Sertraline [Zoloft] 50 mg PO DAILY Albuterol Sulfate [Ventolin HFA] 1 - 2 puff INHALATION RT-Q6H PRN PRN Reason: Shortness Of Breath Trazodone (Unknown Dose) 1 tab PO HS PRN PRN Reason: Insomnia Stomach Medication (Unknown) 1 tab PO DAILY PRN PRN Reason: upset stomach Discharge Medication List Albuterol Sulfate [Ventolin HFA] 1 - 2 puff INHALATION RT-Q6H PRN 08/10/21 [History] Sertraline [Zoloft] 50 mg PO DAILY 08/10/21 [History] Stomach Medication (Unknown) 1 tab PO DAILY PRN 08/10/21 [History] Trazodone (Unknown Dose) 1 tab PO HS PRN 08/10/21 [History] atenoloL 25 mg PO DAILY PRN 08/10/21 [History] Folic Acid 1 mg PO DAILY 90 Days #90 tab 08/12/21 [Rx] Magnesium Oxide [Mag-Ox] 400 mg PO BID 30 Days #60 tab 08/12/21 [Rx] Multivitamins, Thera [Multivitamin (formulary)] 1 each PO DAILY 90 Days #90 tab 08/12/21 [Rx] Potassium Chloride ER [K-Dur 10] 10 meq PO DAILY 30 Days #30 tab 08/12/21 [Rx] Thiamine [Vitamin B-1] 100 mg PO BID-W/MEALS 90 Days #90 tab 08/12/21 [Rx] Follow up Appointment(s)/Referral(s): Nonstaff,Physician [REFERRING] - 1-2 days
[2021-08-12 11:41] LABS: Basophils # (A) 0.02 X 10*3/uL (0.00-0.10); Basophils % (A) 0.7 %; Eosinophils # (A) 0.03 X 10*3/uL (0.04-0.35); HCT 24.6 % (37.2-46.3); HGB 8.2 g/dL (12.0-15.0); Immature Platelet Fraction 9.7 % (1.1-6.1); Lymphocytes # (A) 1.13 X 10*3/uL (0.90-5.00); Lymphocytes % (A) 39.4 %; MCH 35.2 pg (27.0-32.0); MCHC 33.3 g/dL (32.0-37.0); MCV 105.6 fL (80.0-97.0); Mean Platelet Volume 11.1 fL (9.5-12.2); Monocytes % (A) 13.9 %; NRBC Per 100 WBC 0.7 /100 WBCS (0.0-0.0); Neutrophils # (A) 1.26 X 10*3/uL (1.80-7.70); Platelet Count 60 X 10*3/uL (140-440); RBC 2.33 X 10*6/uL (4.10-5.20); RBC Morphology NORMAL; WBC 2.87 X 10*3/uL (4.50-10.00)
== END 2021-08-12 12:36 | disposition home or self-care (01) | DRG 438 ==
LOC: EC 00:34 → 4SSUR 07:48
PROVIDERS: ADMIT Internal Medicine; ATTEND Internal Medicine
PROC: HZ2ZZZZ Detoxification Services for Substance Abuse Treatment (ICD-10-PCS; principal; 2021-08-10)
DX: K85.20 Alcohol induced acute pancreatitis without necrosis or infection (principal); E43 Unspecified severe protein-calorie malnutrition; E87.1 Hypo-osmolality and hyponatremia; F10.239 Alcohol dependence with withdrawal, unspecified; K56.7 Ileus, unspecified; Z68.1 Body mass index [BMI] 19.9 or less, adult; J44.9 Chronic obstructive pulmonary disease, unspecified; D69.6 Thrombocytopenia, unspecified; E83.39 Other disorders of phosphorus metabolism; D72.819 Decreased white blood cell count, unspecified; E83.42 Hypomagnesemia; E86.0 Dehydration; E87.6 Hypokalemia; F17.210 Nicotine dependence, cigarettes, uncomplicated; I10 Essential (primary) hypertension; K76.0 Fatty (change of) liver, not elsewhere classified; Z79.899 Other long term (current) drug therapy; Z82.3 Family history of stroke; Z82.49 Family history of ischemic heart disease and other diseases of the circulatory system; Z83.3 Family history of diabetes mellitus; Z71.41 Alcohol abuse counseling and surveillance of alcoholic; Z71.6 Tobacco abuse counseling; Z91.048 Other nonmedicinal substance allergy status; Z87.19 Personal history of other diseases of the digestive system
CPT/HCPCS: 36415; 74177; 80053; 80143; 80179; 80320; 81001; 82150; 83605; 83690; 83735; 83880; 84100; 84484; 85025; 85610; 85730; 93005; 96361; 96365; 96366; 96375; 99285

== ENCOUNTER → 2021-12-14 | Outpatient (CLI) | payer OTHER ==
[2021-12-14 18:42] LABS: HGB 13.5 g/dL (12.0-15.0); MCHC 32.1 g/dL (32.0-37.0); MCV 90.1 fL (80.0-97.0); Mean Platelet Volume 9.8 fL (9.5-12.2); NRBC Per 100 WBC 0 /100 WBCS (0.0-0.0); Platelet Count 355 X 10*3/uL (140-440); RBC 4.66 X 10*6/uL (4.10-5.20); RDW 12.7 % (11.5-14.5); WBC 7.36 X 10*3/uL (4.50-10.00)
[2021-12-14 18:55] LABS: Protein, Total 7.3 g/dL (6.2-8.2)
[2021-12-14 19:20] LABS: ALT 15 U/L (8-44); AST 20 U/L (13-35); Albumin 4.8 g/dL (3.8-4.9); Albumin/Globulin Ratio 2.09 (1.60-3.17); Alkaline Phosphatase 99 U/L (41-126); BUN/Creat Ratio 17.33 Ratio (12.00-20.00); Blood Urea Nitrogen 10.4 mg/dL (9.0-27.0); Calcium 9.9 mg/dL (8.7-10.3); Carbon Dioxide 27.4 mmol/L (20.0-27.5); Chloride 102 mmol/L (96-109); Globulin 2.3 g/dL (1.6-3.3); Glucose 91 mg/dL (70-110); Iron 69 ug/dL (50-170); Potassium 4.8 mmol/L (3.5-5.5); Sodium 140 mmol/L (135-145); Total Bilirubin <0.15 mg/dL (0.30-1.20); Total Protein 7.1 g/dL (6.2-8.2)
[2021-12-15 12:23] LABS: Albumin 4.66 g/dL (3.80-4.90); Gamma Globulin 0.92 g/dL (0.70-1.50)
== END | disposition home or self-care (01) ==
LOC: LABWHC1 12:07
PROVIDERS: ATTEND Psychiatry & Neurology Neurology
DX: G90.09 Other idiopathic peripheral autonomic neuropathy (principal)
CPT/HCPCS: 36415; 80053; 82306; 82607; 83540; 84165; 84207; 84466; 85027

== ENCOUNTER → 2023-12-28 | Outpatient (CLI) | payer OTHER ==
--- NOTE | 2023-12-28 09:21 | CTL ---
EXAMINATION TYPE: CT Low Dose Lung DATE OF EXAM: 12/28/2023 8:19 AM CLINICAL INDICATION:Female, 53 years old with history of Z12.2 LUNG CA SCR F17.210 CURRENT SMOKER; sm oker , history of tobacco use. COMPARISON: None. TECHNIQUE: Multiple axial non-contrast scans were obtained from approximately the lung apices through the upper abdomen. Coronal and sagittal reformatted images were obtained. Low dose technique was uti lized. CT DLP: 74 mGycm, Automated exposure control for dose reduction was used. CT Contrast: Contrast used: None Oral contrast used: None FINDINGS: ======== Lack of intravenous contrast and low dose technique limits the evaluation of the vascular and soft ti ssue structures. LUNGS: No evidence of pulmonary fibrosis. No evidence of focal consolidation, pneumothorax or pleural effusion. Centrilobular emphysema changes. Nodules: RUL: None. RML: None. RLL: None. DENIA: None. LLL: None. AIRWAY: Patent and unremarkable. HEART: Size within normal limits. MEDIASTINUM: No gross evidence of adenopathy. VASCULATURE: No aortic aneurysm. MUSCULOSKELETAL: No acute osseous abnormalities, remote injury to the sternum. SOFT TISSUES/LYMPH NODES: Unremarkable. LOWER NECK: No significant findings. UPPER ABDOMEN: No significant findings. IMPRESSION: 1. No pulmonary nodules. 2. Mild emphysema. CT LUNG RAD AND CT CHEST RECOMMENDATION: Lung-Rad 1 Negative: Continue annual screening with LDCT in 12 months. S Modifier (other clinically significant findings): None Recommend smoking cessation (if current smoker), or continuation of smoking cessation (if prior smoke r). Annual screening for lung cancer with low-dose computed tomography is recommended in adults ages 55 to 77 years who have a 30 pack-year smoking history and currently smoke or have quit within the pa st 15 years. Screening should be discontinued once a person has not smoked for 15 years or develops a health problem that substantially limits life expectancy or the ability or willingness to have curat lubna lung surgery. Lung rads 2021 [email or web address]
== END | disposition home or self-care (01) ==
LOC: RADCTMAIN 08:01
PROVIDERS: ATTEND Family Medicine
DX: Z12.2 Encounter for screening for malignant neoplasm of respiratory organs (principal); J43.2 Centrilobular emphysema; F17.210 Nicotine dependence, cigarettes, uncomplicated
CPT/HCPCS: 71271

== ENCOUNTER → 2023-12-28 | Outpatient (CLI) | payer OTHER ==
--- NOTE | 2023-12-28 08:47 | US ---
EXAMINATION TYPE: US abdomen limited DATE OF EXAM: 12/28/2023 COMPARISON: CT 2021 CLINICAL INDICATION: Female, 53 years old with history of F10.11 ALCOHOL ABUSE; TECHNIQUE: Multiple sonographic images of the right upper quadrant are obtained. FINDINGS: EXAM MEASUREMENTS: Liver Length: 15.0 cm Gallbladder Wall: 0.20 cm CBD: 0.42 cm Right Kidney: 8.6 x 4.2 x 4.7 cm MANAGER SUBWAY NOTES: Pancreas: wnl Liver: wnl Gallbladder: wnl Evidence for sonographic Ward's sign: no CBD: wnl Right Kidney: wnl IMPRESSION: No evidence for acute process.
--- NOTE | 2023-12-30 08:12 | MM ---
Reason for Exam: Screening (asymptomatic). Baseline mammogram. Patient History: Menarche at age 15. First Full-Term at age 27. Postmenopausal. Risk Values: Marva 5 year model risk: 1.1%. NCI Lifetime model risk: 9.7%. Prior Study Comparison: Patient's first Mammogram. No prior studies available for comparison. Tissue Density: There are scattered areas of fibroglandular density. Findings: Analyzed By CAD. 6 mm nodular density upper outer left breast 4.4 cm from the nipple. Ultrasound is recommended. No masses right breast. No suspicious microcalcifications. Overall Assessment: Incomplete: need additional imaging evaluation, BI-RAD 0 Management: Diagnostic Breast Ultrasound of the left breast. . Patient should continue monthly self-breast exams. A clinical breast exam by your physician is recommended on an annual basis. This exam should not preclude additional follow-up of suspicious palpable abnormalities. Note on Marva scores and lifetime risk: 1. A Marva score greater than 3% is considered moderate risk. If this is the case, consider specialist referral to assess eligibility for a risk reducing agent. 2. If overall lifetime risk for the development of breast cancer is 20% or higher, the patient may qualify for future screening with alternating mammogram and breast MRI. Electronically signed and approved by: Sina Kaiser M.D. Radiologis
== END | disposition home or self-care (01) ==
LOC: RADUSWWP 07:13
PROVIDERS: ATTEND Family Medicine
DX: Z12.31 Encounter for screening mammogram for malignant neoplasm of breast (principal); F10.11 Alcohol abuse, in remission; Z52.008 Unspecified donor, other blood
CPT/HCPCS: 76705; 77067

== ENCOUNTER → 2024-02-08 | Outpatient (CLI) | payer OTHER ==
--- NOTE | 2024-02-08 10:55 | USB ---
Reason for Exam: Additional evaluation requested from abnormal screening. Patient History: Menarche at age 15. First Full-Term at age 27. Postmenopausal. Risk Values: Marva 5 year model risk: 1.2%. NCI Lifetime model risk: 9.6%. Technique: Method: Targeted. Prior Study Comparison: 12/28/2023 Bilateral MG screening mammo w CAD, [facility]. Findings: The upper outer quadrant of the left breast, the axilla of the left breast and the retroareolar of the left breast were scanned. There is a lymph node identified to 4 cm from the nipple at the 3:00 position measuring 5 x 3 mm correlating with the mammographic abnormality. No suspicious masses seen. Overall Assessment: Benign, BI-RAD 2 Management: Screening Mammogram of both breasts in 1 year. A clinical breast exam by your physician is recommended on an annual basis and results should be correlated with mammographic findings. This exam should not preclude additional follow-up of suspicious palpable abnormalities. Results were given to the patient verbally at the time of exam. Electronically signed and approved by: Sina Kaiser M.D. Radiologis
== END | disposition home or self-care (01) ==
LOC: RADUSWWP 10:27
PROVIDERS: ATTEND Family Medicine
DX: R92.8 Other abnormal and inconclusive findings on diagnostic imaging of breast

== ENCOUNTER 2024-11-19 09:11 | Emergency (ER) | payer OTHER ==
[2024-11-19 09:18] VITALS: BP 110/68; PULSE 83; RESP 18; TEMP 98
--- NOTE | 2024-11-19 10:21 | ED ---
General Adult HPI - General Chief complaint: Nausea/Vomiting/Diarrhea Stated complaint: NV, blurry vision Time Seen by Provider: 11/19/24 09:28 Source: patient, EMS, RN notes reviewed Mode of arrival: EMS Limitations: no limitations - History of Present Illness Initial comments: Quick [id number] female presenting to the emergency department for com plaints of nausea, vomiting, diarrhea over the past 2 days. She endorses intermittent epigastric abdominal pain prior to vomiting. Denies hematochezia, melena, emesis. Denies previous surgical abdominal history. Denies chest pain. - Related Data Home Medications Medication Instructions Recorded Confirmed Albuterol Sulfate [Ventolin HFA] 1 - 2 puff INHALATION RT-Q6H PRN 08/10/21 08/10/21 Sertraline [Zoloft] 50 mg PO DAILY 08/10/21 08/10/21 Stomach Medication (Unknown) 1 tab PO DAILY PRN 08/10/21 08/10/21 Trazodone (Unknown Dose) 1 tab PO HS PRN 08/10/21 08/10/21 atenoloL 25 mg PO DAILY PRN 08/10/21 08/10/21 Previous Rx's Medication Instructions Recorded Folic Acid 1 mg PO DAILY 90 Days #90 tab 08/12/21 Magnesium Oxide [Mag-Ox] 400 mg PO BID 30 Days #60 tab 08/12/21 Multivitamins, Thera [Multivitamin 1 each PO DAILY 90 Days #90 tab 08/12/21 (formulary)] Potassium Chloride ER [K-Dur 10] 10 meq PO DAILY 30 Days #30 tab 08/12/21 Thiamine [Vitamin B-1] 100 mg PO BID-W/MEALS 90 Days #90 08/12/21 tab Allergies Allergy/AdvReac Type Severity Reaction Status Date / Time nickel Allergy Rash/Hives Verified 08/10/21 08:01 Review of Systems ROS Statement: Those systems with pertinent positive or pertinent negative responses have been documented in the HPI. ROS Other: All systems not noted in ROS Statement are negative. Past Medical History Past Medical History: Asthma, COPD, Hypertension, Liver Disease Additional Past Medical History / Comment(s): Fatty liver, palpitations. History of Any Multi-Drug Resistant Organisms: None Reported Past Surgical History: Hernia Repair Additional Past Surgical History / Comment(s): L inguinal hernia x2, colonoscopy Past Anesthesia/Blood Transfusion Reactions: No Reported Reaction Past Psychological History: Depression Smoking Status: Current every day smoker Past Alcohol Use History: None Reported Past Drug Use History: None Reported - Past Family History Mother Family Medical History: CVA/TIA Father Family Medical History: Diabetes Mellitus, Myocardial Infarction (VT) Additional Family Medical History / Comment(s): Pt cannot recall father's age when he had his VT. General Exam - General Exam Comments Initial Comments: Visual Physical Exam Vital signs reviewed General: Well-appearing, nontoxic, no acute distress. Head: Normocephalic, atraumatic Eyes: PERRLA, EOMI ENT: Airway patent Chest: Nonlabored breathing Skin: No visual rash, normal skin tone Neuro: Alert and oriented 3 Musculoskeletal: No gross abnormalities Limitations: no limitations Course Vital Signs 11/19/24 09:13 Temperature 98.0 F Pulse Rate 83 Respiratory 18 Rate Blood Pressure 110/68 O2 Sat by Pulse 100 Oximetry Medical Decision Making - Medical Decision Making I completed the quick note portion of this chart signed Elsi Tolbert PA-C Comprehensive medical decision making unable to be determined due to patient leaving AGAINST MEDICAL ADVICE from the emergency department waiting room. - Lab Data Result diagrams: 11/19/24 10:27 Lab Results 11/19/24 Range/Units 10:27 Sodium 136 L (137-145) mmol/L Potassium 3.7 (3.5-5.1) mmol/L Chloride 107 (98-107) mmol/L Carbon Dioxide 15 L (22-30) mmol/L Anion Gap 14 mmol/L BUN 16 (7-17) mg/dL Creatinine 0.59 (0.52-1.04) mg/dL Est GFR (CKD-EPI)AfAm >90 (>60 ml/min/1.73 sqM) Est GFR (CKD-EPI)NonAf >90 (>60 ml/min/1.73 sqM) Glucose 105 H (74-99) mg/dL Calcium 9.0 (8.4-10.2) mg/dL Magnesium 1.8 (1.6-2.3) mg/dL Total Bilirubin 0.5 (0.2-1.3) mg/dL AST 39 H (14-36) U/L ALT 26 (4-34) U/L Alkaline Phosphatase 81 (38-126) U/L Total Protein 7.2 (6.3-8.2) g/dL Albumin 4.6 (3.5-5.0) g/dL Lipase 270 (23-300) U/L Disposition Clinical Impression: Left against medical advice Disposition: LEFT AGAINST MEDICAL ADVICE Condition: Undetermined Is patient prescribed a controlled substance at d/c from ED?: No Referrals: Jelena Bautista MD [Primary Care Provider] - 1-2 days
[2024-11-19 10:44] LABS: ALT 26 U/L (4-34); AST 39 U/L (14-36); African American GFR (CKD) >90 (>60 ml/min/1.73 sqM); Albumin 4.6 g/dL (3.5-5.0); Alkaline Phosphatase 81 U/L (38-126); Anion Gap 14 mmol/L; Blood Urea Nitrogen 16 mg/dL (7-17); Carbon Dioxide 15 mmol/L (22-30); Chloride 107 mmol/L (98-107); Glucose 105 mg/dL (74-99); Lipase 270 U/L (23-300); Magnesium 1.8 mg/dL (1.6-2.3); Non-African American GFR(CKD) >90 (>60 ml/min/1.73 sqM); Potassium 3.7 mmol/L (3.5-5.1); Sodium 136 mmol/L (137-145); Total Bilirubin 0.5 mg/dL (0.2-1.3); Total Protein 7.2 g/dL (6.3-8.2)
== END 2024-11-19 09:30 | disposition left against medical advice (07) ==
LOC: EC 09:11
DX: R11.2 Nausea with vomiting, unspecified (principal); R19.7 Diarrhea, unspecified; R10.13 Epigastric pain; F17.200 Nicotine dependence, unspecified, uncomplicated; Z53.29 Procedure and treatment not carried out because of patient's decision for other reasons; Z88.8 Allergy status to other drugs, medicaments and biological substances
CPT/HCPCS: 36415; 80053; 83690; 83735; 99284